=== PATIENT | female | born 1940 | race African-American/Black ===

== ENCOUNTER 2020-10-26 14:07 | Emergency (ER) | payer OTHER ==
[~2020-10-26] VITALS: Ht 167.6 cm; Wt 119.0 kg
[2020-10-26] MEDS ORDERED: LIPITOR10 MG PO (14:28)
[2020-10-26] MEDS ORDERED: TYLENOL325 M1 PO (14:29)
[2020-10-26 14:31] LABS: ABSOLUTE NEUTROPHILS 5.9 thou/uL (1.4-8.2); BASOPHILS 0.6 % (0.0-2.0); EOSINOPHILS 1.6 % (0.0-3.0); HEMATOCRIT 33.1 % (37.0-47.0); HEMOGLOBIN 10.8 gm/dL (12.0-15.0); LYMPHOCYTES 19.3 % (24.0-44.0); MCH 28.6 pg (26.0-34.0); MCHC 32.8 g/dL (28.0-37.0); MCV 87.2 fL (80.0-100.0); MONOCYTES 6.2 % (1.0-8.0); PLATELET COUNT 276 thou/uL (150-400); POLYS 72.3 % (36.0-66.0); RDW 14.5 % (10.5-14.5); WBC 8.2 thou/uL (4.0-11.0)
[2020-10-26 14:41] LABS: ANION GAP 12 mmol/L (7-16); BUN 13 mg/dL (7-18); CHLORIDE 109 mmol/L (98-107); CO2 24 mmol/L (21-32); CREATININE 1.1 mg/dL (0.6-1.0); GLUCOSE 124 mg/dL (74-106); SODIUM 145 mmol/L (136-145)
[2020-10-26 14:46] LABS: APTT 24.4 Seconds (24.5-32.8); INR 0.96; PROTIME 10.5 Seconds (10.5-12.1)
[2020-10-26 14:51] LABS: ALBUMIN 3.7 g/dL (3.4-5.0); DIRECT BILIRUBIN < 0.1 mg/dL (<0.1-0.2); SGOT 14 U/L (15-37); SGPT 19 U/L (14-59); TOTAL BILIRUBIN 0.3 mg/dL (0.2-1.0); TOTAL PROTEIN 7.6 g/dL (6.4-8.2); TROPONIN-I <0.06 ng/mL (<0.06)
--- NOTE | 2020-10-26 16:19 | EKG ---
[address] [place] [address] ELECTROCARDIOGRAM REPORT Name: HALEY PETERSON Room #: REG LACHO Acuna#: [id number] Admission: 10/26/20 Attend Phys: Discharge: Date of : 44 Report #: [id number] [facility] ED Test Date: 2020-10-26 Test Time: 14:35:55 Pat Name: HALEY PETERSON Department: Room: Gender: F Senior [employer] 1940 Requested By: Hazel Kennedy Order Number: [id number] MD: Tl Lopez Measurements Intervals [place] Rate: 69 P: 46 MS: 145 QRS: -20 QRSD: 89 T: 2 QT: 416 QTc: 446 Interpretive Statements Sinus rhythm Abnormal R-wave progression, early transition Inferior infarct, old Borderline ST elevation, anterior leads No previous ECG available for comparison Electronically Signed On 10-26-2020 16:19:36 CDT by Tl Lopez [email or web address] <ELECTRONICALLY SIGNED> By: Tl Lopez MD, [facility] 10/26/20 1619 1435 1435 Tl Lopez MD, FACC /EPI
[2020-10-26 16:20] VITALS: BP 155/85
== END 2020-10-26 16:20 | disposition short-term general hospital (02) ==
LOC: ER 14:07
PROVIDERS: Emergency Medicine
DX: I63.9 Cerebral infarction, unspecified (principal); R29.810 Facial weakness